=== PATIENT | male | born 1975 | race Asian ===

== ENCOUNTER 2017-03-06 20:28 | Emergency (ER) | payer OTHER ==
[~2017-03-06] VITALS: Wt 76.5 kg
[2017-03-06] MEDS ORDERED: IBUP-1542 PO (22:35)
[2017-03-06] MEDS ORDERED: MED4DP PO (22:35)
[2017-03-06] MEDS ORDERED: CYCL-319 PO (22:35)
[2017-03-06] MEDS: KETOROLAC 15 MG INJ IM STA ×2 (22:45→22:46)
[2017-03-06] MEDS ORDERED: HYDROCODONE/APAP (5/325) TAB PO STA (22:49)
[2017-03-06] MEDS ORDERED: DIAZEPAM 5 MG TAB PO ONE (23:00)
--- NOTE | 2017-03-06 23:19 | ERD ---
ER Documentation Chief Complaint Date/Time DATE: 03/06/17 TIME: 23:18 Chief Complaint Back pain since yesterday. Lifted something heavy HPI 41-year-old male presents to the emergency department with a history of herniated disks complaining of lumbar back pain status post lifting a heavy object yesterday. Patient states the pain is 9 out of 10. He denies any saddle anesthesia, bladder or bowel incontinence. He states he took 3 ibuprofen 's couple hours prior to being seen without much relief. Patient states that in the past this has happened before and Medrol Dosepak has helped in ROS All systems reviewed and are negative except as per history of present illness. Medications Home Meds Active Scripts Cyclobenzaprine Hcl* (Cyclobenzaprine Hcl*) 10 Mg Tablet, 10 MG PO TID, #30 TAB Prov:AILYN FLORES PA-C 03/06/17 Ibuprofen* (Ibuprofen*) 600 Mg Tablet, 600 MG PO Q6H, #30 TAB Prov:AILYN FLORES PA-C 03/06/17 Methylprednisolone* (Medrol* DOSE PACK) 4 Mg/Dose-Pack Tab.ds.pk, 4 MG PO . DIRECTED, #1 PACKET Prov:AILYN FLORES PA-C 03/06/17 Allergies Allergies: Coded Allergies: No Known Allergy (Unverified , 03/06/17) PMhx/Soc Medical and Surgical Hx: pt denies Medical Hx, pt denies Surgical Hx Hx Alcohol Use: No Hx Substance Use: No Hx Tobacco Use: No Smoking Status: Never smoker Physical Exam Vitals Vital Signs Date Time Temp Pulse Resp B/P Pulse Ox O2 Delivery O2 Flow Rate FiO2 03/06/17 20:41 98.4 81 22 132/74 98 Physical Exam GENERAL: WD/WN, in no apparent distress, non-toxic appearing HENT: NC/AT EYES: Conjunctiva normal NECK: Supple PULM: Normal labored breathing CV: Good capillary refill GI: Non-distended, no guarding BACK: no deformities noted, normal spinal curvature, TTP on lumbar region, non- tender on spine midline EXT: No clubbing, cyanosis, or edema NEURO: Moves on all fours, sensation intact, normal gait SKIN: intact PSYCH: Normal mood Results 24 hrs Current Medications Medications (Trade) Dose Ordered Sig/Emilia Route PRN Reason Start Time Stop Time Status Last Admin Dose Admin Diazepam (Valium) 10 mg ONCE ONCE PO 03/06/17 23:00 03/06/17 23:01 DC 03/06/17 22:45 Ketorolac Tromethamine (Toradol) 15 mg ONCE STAT IM 03/06/17 22:31 03/06/17 22:34 DC Acetaminophen/ Hydrocodone Bitart ([place] (5/325)) 1 tab ONCE STAT PO 03/06/17 22:49 03/06/17 22:50 DC 03/06/17 22:54 Procedures/MDM 41-year-old male presents to the ER with lumbar back pain and muscle spasms, low suspicion for spinal abscess, vertebral fracture, cauda equina syndrome, spinal stenosis due to physical examination. In the ED patient was given [place] and Valium. Patient is neurovascular intact and hematocele to be discharged home. Prescription for Medrol Dosepak, Flexeril and ibuprofen was provided. discussed to return to the ED if not improving as expected or follow-up with a primary care physician. Patient understood and agreed with this plan. Departure Diagnosis: Primary Impression: Back pain Additional Impression: Muscle spasm Condition: Stable Patient Instructions: Back Pain (Acute Or Chronic) Additional Instructions: FOLLOW UP WITH YOUR PRIMARY CARE PHYSICIAN TOMORROW.Return to this facility if you are not improving as expected. Take all medicines as directed. Return to this facility if you are not improving as expected. You have been given a medicine which may cause drowsiness.DO NOT DRIVE OR OPERATE DANGEROUS MACHINERY while taking this medicine! AILYN FLORES PA-C Mar 06, 2017 23:19
== END 2017-03-06 23:01 | disposition home or self-care (01) ==
LOC: FTE 20:28
DX: M54.5 Low back pain (principal); M62.830 Muscle spasm of back
CPT/HCPCS: 99284; J1885